=== PATIENT | female | born 1940 | race Caucasian/White ===

== ENCOUNTER 2021-07-14 22:09 | Emergency (ER) | payer MEDICARE ==
[~2021-07-14] VITALS: Ht 160 cm; Wt 78.5 kg
[~2021-07-14 22:09] MED LIST: APIX5TAB3 PO; LIDOcaine 1% 30ml preserv. free vial ONE; NITR100C6 PO
[2021-07-14] MEDS ORDERED: morphine 4 MG/ML inj SYRINge IV ONE (22:30)
[2021-07-14 22:58] LABS: BASOPHILS # (AUTO) 0.1 X10'3 (0-0.2); BASOPHILS % (AUTO) 0.9 % (0-1); EOSINOPHILS % (AUTO) 0.1 % (0-6); HEMATOCRIT 35.6 % (35.0-45.0); HEMOGLOBIN 11.5 g/dl (12.0-16.0); LYMPHOCYTES # (AUTO) 0.6 X10'3 (1.1-4.8); LYMPHOCYTES % (AUTO) 3.8 % (21-51); MEAN CORPUSCULAR HEMOGLOBIN 27.8 PG (27.0-31.0); MEAN CORPUSCULAR HGB CONC 32.3 g/dL (33.0-36.5); MEAN CORPUSCULAR VOLUME 86.2 FL (78-98); MONOCYTES # (AUTO) 0.8 X10'3 (0-0.9); MONOCYTES % (AUTO) 5.2 % (2-12); NEUTROPHILS # (AUTO) 13.1 X10'3 (1.8-7.7); PLATELET COUNT 149 X10'3 (140-440); RED BLOOD COUNT 4.13 X10'6 (4.20-5.60); WHITE BLOOD COUNT 14.5 X10'3 (4.5-11.0)
[2021-07-14 23:03] LABS: ALANINE AMINOTRANSFERASE 21 U/L (12-78); ALBUMIN 3.6 G/DL (3.4-5.0); ALBUMIN/GLOBULIN RATIO 0.9 (1.1-1.5); ALKALINE PHOSPHATASE 81 IU/L (46-116); ANION GAP 11 (8-16); ASPARTATE AMINO TRANSFERASE 24 U/L (10-37); BILIRUBIN,TOTAL 0.5 MG/DL (0.1-1.0); BLOOD UREA NITROGEN 22 MG/DL (7-18); BUN/CREATININE RATIO 28.9 (6.6-38.0); CHLORIDE 103 MMOL/L (99-107); CREATININE 0.76 MG/DL (0.40-0.90); GLUCOSE 165 MG/DL (70-104); POTASSIUM 3.3 MMOL/L (3.5-5.1); SODIUM 141 MMOL/L (135-145); TOTAL CARBON DIOXIDE 27.1 MMOL/L (24-32); TOTAL PROTEIN 7.5 G/DL (6.4-8.2); eGFR 73 ML/MIN
[2021-07-14 23:06] LABS: CREATINE KINASE 111 U/L (26-192)
[2021-07-14 23:18] LABS: TOTAL CELLS COUNTED 100
[2021-07-14 23:19] LABS: PLATELET ESTIMATE NORMAL
[2021-07-15] MEDS ORDERED: acetaminophen 325mg tablet PO ONE
[2021-07-15 00:58] VITALS: BP 162/88
== END 2021-07-15 00:59 | disposition home or self-care (01) ==
LOC: MERGE 22:09 → ER 22:09
DX: S42.91XA Fracture of right shoulder girdle, part unspecified, initial encounter for closed fracture (principal); W18.39XA Other fall on same level, initial encounter; Y93.89 Activity, other specified; Y92.89 Other specified places as the place of occurrence of the external cause; Y99.8 Other external cause status
CPT/HCPCS: 36415; 64450; 71045; 73030; 73502; 80053; 82550; 84484; 85007; 85025; 96372; 99284; J2270; J3490

== ENCOUNTER 2021-07-17 11:44 | Inpatient (IN) | payer MEDICARE ==
[~2021-07-17] VITALS: Ht 160 cm; Wt 79.0 kg
[~2021-07-17 11:44] MED LIST changes: -LIDOcaine 1% 30ml preserv. free vial ONE
[2021-07-17 12:34] LABS: BASOPHILS % (AUTO) 0.4 % (0-1); EOSINOPHILS # (AUTO) 0.1 X10'3 (0-0.9); EOSINOPHILS % (AUTO) 1.2 % (0-6); HEMATOCRIT 31.6 % (35.0-45.0); HEMOGLOBIN 10.2 g/dl (12.0-16.0); LYMPHOCYTES # (AUTO) 0.9 X10'3 (1.1-4.8); LYMPHOCYTES % (AUTO) 11.8 % (21-51); MEAN CORPUSCULAR HGB CONC 32.4 g/dL (33.0-36.5); MEAN CORPUSCULAR VOLUME 86.2 FL (78-98); MEAN PLATELET VOLUME 7.9 FL (7.4-10.4); MONOCYTES # (AUTO) 0.7 X10'3 (0-0.9); MONOCYTES % (AUTO) 9.3 % (2-12); NEUTROPHILS # (AUTO) 5.8 X10'3 (1.8-7.7); NEUTROPHILS % (AUTO) 77.3 % (42-75); PLATELET COUNT 116 X10'3 (140-440); RED BLOOD COUNT 3.66 X10'6 (4.20-5.60); RED CELL DISTRIBUTION WIDTH 15.9 % (11.5-14.5); WHITE BLOOD COUNT 7.5 X10'3 (4.5-11.0)
[2021-07-17 12:39] LABS: ALBUMIN 2.8 G/DL (3.4-5.0); ANION GAP 8 (8-16); BLOOD UREA NITROGEN 16 MG/DL (7-18); BUN/CREATININE RATIO 25.8 (6.6-38.0); CALCIUM 8.7 MG/DL (8.5-10.1); CHLORIDE 104 MMOL/L (99-107); CREATININE 0.62 MG/DL (0.40-0.90); GLUCOSE 108 MG/DL (70-104); POTASSIUM 3.1 MMOL/L (3.5-5.1); SODIUM 142 MMOL/L (135-145); TOTAL CARBON DIOXIDE 30.5 MMOL/L (24-32); eGFR > 90 ML/MIN
[2021-07-17] MEDS ORDERED: acetaminophen 325mg tablet PO PRN (13:30)
[2021-07-17] MEDS ORDERED: HYDROmorphone/PF 0.2 MG/ML SYRINGE IV PRN (13:30)
[2021-07-17] MEDS ORDERED: mag hydrox/Alum hydrox/simeth 30ml oral suspension PO PRN (13:30)
[2021-07-17] MEDS ORDERED: magnesium hydroxide 30ml (MOM) UD suspension PO PRN (13:30)
[2021-07-17] MEDS ORDERED: ondansetron/PF 4mg/2ml inj IV PRN (13:30)
[2021-07-17] MEDS ORDERED: magnesium 2GM in 50ml NS 50 ML IV PRN (13:35)
[2021-07-17] MEDS ORDERED: magnesium Cl slow-release 64mg tablet PO PRN (13:35)
[2021-07-17] MEDS ORDERED: potassium CL 10mEq/100ml bag 100 ML IV PRN (13:35)
[2021-07-17] MEDS ORDERED: potassium Cl 20 mEq SR tablet PO PRN (13:35)
[2021-07-17] MEDS ORDERED: magnesium 4gm in 100ml NS 100 ML IV PRN (13:35)
[2021-07-17] MEDS: HYDROmorphone inj. 0.5 MG/0.5 ML DISP.SYRIN IV PRN ×2 (13:48→18:37)
[2021-07-17] MEDS ORDERED: HYDR-3972 PO (13:50)
[2021-07-17] MEDS ORDERED: APIX5TAB3 PO (13:50)
[2021-07-17] MEDS ORDERED: LOVA20TA2 PO (13:50)
[2021-07-17] MEDS ORDERED: CELE-85 PO (13:50)
[2021-07-17] MEDS ORDERED: GABA300C PO (13:50)
[2021-07-17] MEDS ORDERED: SERT-433 PO (13:50)
[2021-07-17] MEDS: normal saline 1000ml 1,000 ML IV SCH (14:02)
--- NOTE | 2021-07-17 15:11 | NUR ---
noyed hypoxic on RA, 92%,placed on 2L nc sating 94% at this time.
--- NOTE | 2021-07-17 16:15 | NUR ---
changed patient into a gown, call light within reach.
--- NOTE | 2021-07-17 16:15 | NUR ---
bearden cath palced,patient tolerated well.
--- NOTE | 2021-07-17 18:40 | NUR ---
Patient laying on gurney complaining of right shoulder pain 01/04, Dilaudid was just given and I will continue to monitor.
[2021-07-17 20:00] VITALS: BP 153/81
[2021-07-17] MEDS: K and/or MAG REPLACEMENT MC SCH (20:00)
--- NOTE | 2021-07-17 20:00 | NUR ---
PATIENT ADMITTED TO ROOM 346B FROM ER FOR PELVIC FRACTURE AND FRACTURE OF RIGHT HUMERUS. PLACED COMFORTABLE IN BED. VITAL SIGNS TAKEN AND RECORDED.
[2021-07-17] MEDS: sertraline 50mg tablet PO SCH (21:57)
[2021-07-17] MEDS: gabapentin 300mg capsule PO SCH (21:58)
[2021-07-17] MEDS: potassium Cl 20 mEq SR tablet PO PRN (21:58)
[2021-07-17] MEDS: HYDROcodone/acetaminophen 10/325mg tab PO PRN (21:58)
[2021-07-17] MEDS: docusate sod 100mg capsule PO SCH (21:59)
[2021-07-18] VITALS: BP 160/88
[2021-07-18] MEDS: normal saline 1000ml 1,000 ML IV SCH ×3 (00:17→19:30)
[2021-07-18] MEDS: HYDROmorphone inj. 0.5 MG/0.5 ML DISP.SYRIN IV PRN ×4 (03:46→20:17)
[2021-07-18 05:56] LABS: BASOPHILS % (AUTO) 0.3 % (0-1); EOSINOPHILS # (AUTO) 0.1 X10'3 (0-0.9); EOSINOPHILS % (AUTO) 1.3 % (0-6); HEMATOCRIT 27.5 % (35.0-45.0); HEMOGLOBIN 9.1 g/dl (12.0-16.0); LYMPHOCYTES % (AUTO) 13.4 % (21-51); MEAN CORPUSCULAR HEMOGLOBIN 28.4 PG (27.0-31.0); MEAN CORPUSCULAR HGB CONC 33.2 g/dL (33.0-36.5); MEAN CORPUSCULAR VOLUME 85.6 FL (78-98); MEAN PLATELET VOLUME 7.8 FL (7.4-10.4); MONOCYTES # (AUTO) 0.7 X10'3 (0-0.9); MONOCYTES % (AUTO) 9.8 % (2-12); NEUTROPHILS # (AUTO) 5.7 X10'3 (1.8-7.7); NEUTROPHILS % (AUTO) 75.2 % (42-75); PLATELET COUNT 116 X10'3 (140-440); RED BLOOD COUNT 3.21 X10'6 (4.20-5.60); RED CELL DISTRIBUTION WIDTH 15.7 % (11.5-14.5); WHITE BLOOD COUNT 7.6 X10'3 (4.5-11.0)
[2021-07-18 06:05] LABS: ALBUMIN 2.5 G/DL (3.4-5.0); ANION GAP 9 (8-16); BLOOD UREA NITROGEN 13 MG/DL (7-18); BUN/CREATININE RATIO 24.1 (6.6-38.0); CALCIUM 8.1 MG/DL (8.5-10.1); CHLORIDE 106 MMOL/L (99-107); CREATININE 0.54 MG/DL (0.40-0.90); GLUCOSE 110 MG/DL (70-104); POTASSIUM 3.2 MMOL/L (3.5-5.1); SODIUM 141 MMOL/L (135-145); TOTAL CARBON DIOXIDE 25.7 MMOL/L (24-32); eGFR > 90 ML/MIN
--- NOTE | 2021-07-18 06:10 | NUR ---
Patient in room [facility]. I have received report from Nisha Cameron RN and had the opportunity to ask questions and assume patient care.
--- NOTE | 2021-07-18 06:30 | NUR ---
Problems reprioritized. Patient report given, questions answered & plan of care reviewed with BENNY HOWARD.
[2021-07-18 07:29] VITALS: BP 159/82
[2021-07-18] MEDS: apixaban 5mg tablet PO SCH ×2 (07:48→21:33)
[2021-07-18] MEDS: atorvastatin 10mg tablet PO SCH (07:48)
[2021-07-18] MEDS: docusate sod 100mg capsule PO SCH ×2 (07:48→21:32)
[2021-07-18] MEDS: celeCOXIB 100mg capsule PO SCH (07:48)
[2021-07-18] MEDS: K and/or MAG REPLACEMENT MC SCH ×2 (07:49→20:00)
[2021-07-18 11:00] VITALS: BP 161/90
--- NOTE | 2021-07-18 18:45 | NUR ---
Problems reprioritized. Patient report given, questions answered & plan of care reviewed with Nisha Cameron RN.
--- NOTE | 2021-07-18 18:50 | NUR ---
Patient in room [facility]. I have received report from BENNY HOWARD and had the opportunity to ask questions and assume patient care.
[2021-07-18 20:00] VITALS: BP 165/79
[2021-07-18] MEDS: sertraline 50mg tablet PO SCH (21:32)
[2021-07-18] MEDS: gabapentin 300mg capsule PO SCH (21:33)
[2021-07-18] MEDS: potassium Cl 20 mEq SR tablet PO PRN (21:33)
[2021-07-19] VITALS: BP 162/98
[2021-07-19] MEDS: HYDROmorphone inj. 0.5 MG/0.5 ML DISP.SYRIN IV PRN (00:51)
[2021-07-19] MEDS: normal saline 1000ml 1,000 ML IV SCH (00:54)
[2021-07-19 06:14] LABS: BASOPHILS % (AUTO) 0.4 % (0-1); EOSINOPHILS # (AUTO) 0.2 X10'3 (0-0.9); EOSINOPHILS % (AUTO) 2.5 % (0-6); HEMATOCRIT 28.1 % (35.0-45.0); HEMOGLOBIN 9.1 g/dl (12.0-16.0); LYMPHOCYTES # (AUTO) 1.4 X10'3 (1.1-4.8); LYMPHOCYTES % (AUTO) 18.7 % (21-51); MEAN CORPUSCULAR HEMOGLOBIN 28.5 PG (27.0-31.0); MEAN CORPUSCULAR HGB CONC 32.5 g/dL (33.0-36.5); MEAN CORPUSCULAR VOLUME 87.8 FL (78-98); MEAN PLATELET VOLUME 7.7 FL (7.4-10.4); MONOCYTES # (AUTO) 0.9 X10'3 (0-0.9); MONOCYTES % (AUTO) 11.4 % (2-12); PLATELET COUNT 144 X10'3 (140-440); RED BLOOD COUNT 3.19 X10'6 (4.20-5.60); RED CELL DISTRIBUTION WIDTH 16.4 % (11.5-14.5); WHITE BLOOD COUNT 7.5 X10'3 (4.5-11.0)
--- NOTE | 2021-07-19 06:30 | NUR ---
Problems reprioritized. Patient report given, questions answered & plan of care reviewed with ONEAL HOWARD.
[2021-07-19 06:31] LABS: ALBUMIN 2.3 G/DL (3.4-5.0); ANION GAP 7 (8-16); BLOOD UREA NITROGEN 9 MG/DL (7-18); BUN/CREATININE RATIO 17.3 (6.6-38.0); CALCIUM 8.3 MG/DL (8.5-10.1); CHLORIDE 106 MMOL/L (99-107); CREATININE 0.52 MG/DL (0.40-0.90); GLUCOSE 104 MG/DL (70-104); POTASSIUM 3.8 MMOL/L (3.5-5.1); SODIUM 138 MMOL/L (135-145); eGFR > 90 ML/MIN
[2021-07-19] MEDS: atorvastatin 10mg tablet PO SCH (07:42)
[2021-07-19] MEDS: celeCOXIB 100mg capsule PO SCH (07:42)
[2021-07-19] MEDS: docusate sod 100mg capsule PO SCH (07:43)
[2021-07-19] MEDS: HYDROcodone/acetaminophen 10/325mg tab PO PRN (07:43)
[2021-07-19] MEDS: apixaban 5mg tablet PO SCH (07:44)
[2021-07-19] MEDS: K and/or MAG REPLACEMENT MC SCH (07:45)
[2021-07-19 08:00] VITALS: BP 166/93
[2021-07-19 11:00] VITALS: BP 110/70
--- NOTE | 2021-07-19 13:30 | NUR ---
Tried to call report to [facility] for them to call back.
[2021-07-20] MEDS ORDERED: pneumococcal 23-VAL P-sac vacc 25 mcg/0.5ml vial IMVAC ONE (10:00)
== END 2021-07-19 15:10 | DRG 536 ==
LOC: ER 11:44 → ED HOLD 13:33 → SUR 3N 20:09
PROVIDERS: ADMIT Family Medicine; ATTEND Family Medicine
DX: S32.501A Unspecified fracture of right pubis, initial encounter for closed fracture (principal); S42.301A Unspecified fracture of shaft of humerus, right arm, initial encounter for closed fracture; I48.20 Chronic atrial fibrillation, unspecified; Z66 Do not resuscitate; E78.5 Hyperlipidemia, unspecified; E87.6 Hypokalemia; G62.9 Polyneuropathy, unspecified; W18.39XA Other fall on same level, initial encounter; R26.2 Difficulty in walking, not elsewhere classified; Z96.641 Presence of right artificial hip joint; Z96.651 Presence of right artificial knee joint; I10 Essential (primary) hypertension; I25.10 Atherosclerotic heart disease of native coronary artery without angina pectoris; M81.0 Age-related osteoporosis without current pathological fracture; Z79.01 Long term (current) use of anticoagulants; Z79.899 Other long term (current) drug therapy; Y93.89 Activity, other specified; Y92.89 Other specified places as the place of occurrence of the external cause; Y99.8 Other external cause status
CPT/HCPCS: 36415; 64450; 71045; 72192; 73030; 73502; 80048; 80053; 82550; 84484; 85007; 85025; 87081; 96372; 99284; 99285; G0378; J1170; J2270; J3490; J7030